=== PATIENT | female | born 1960 | race Two or more races ===

== ENCOUNTER → 2017-07-01 | Outpatient (CLI) | payer MEDICAID ==
[~2017-07-01] MED LIST: DICLOFENAC 50MG50 MG PO; FLEXERIL10 MG PO; HYDROCODONE-APA1 TA1 PO; PREDNISONE 20MG20 MG PO
--- NOTE | 2017-07-01 14:02 | RADIOLOGY REPORT PS360 ---
CT ABD PELVIS W/ CONTRAST CLINICAL INDICATION: RLQ ABD PAIN ORDERING PHYSICIAN: Rosaura MUSTAFA PATIENT AGE: 57 years COMPARISON: 10/02/2014 TECHNIQUE: Axial images obtained with sagittal and coronal reformats. PROCEDURE: Oral Contrast: Redicat IV Contrast: 75 mL of Isovue-[id number]. FINDINGS: Lower thorax: No acute finding ABDOMEN: Liver: No masses or biliary dilatation. Gallbladder: Nondistended. There are a few small densities along the posterior aspect of the gallbladder suspicious for small stones which may be confirmed with ultrasound. No biliary dilatation.. Pancreas: No masses or peripancreatic fluid collections. Spleen: Unremarkable. Adrenals: Unremarkable Kidneys/ureters: No masses. No renal calculi. No hydronephrosis. No perinephric fluid collections. No ureteral dilatation or obvious ureteral calculi. Stomach bowel: Nondistended. No obvious mass or thickening. Appendix: No evidence of appendicitis. PELVIS: Reproductive: Prior hysterectomy Bladder: Nondistended. No obvious stones or masses. ABDOMEN & PELVIS: Peritoneum: No abnormal fluid collections. No obvious inflammatory changes. No free air. Tiny umbilical hernia containing fat Lymph nodes: No enlarged lymph nodes apparent. Vasculature: No evidence of abdominal aortic aneurysm. No retroperitoneal hemorrhage evident. Bones: No acute fracture IMPRESSION: 1. Possible cholelithiasis. 2. No evidence of appendicitis or obstructing ureteral calculus.
== END ==
LOC: RAD 07:02
DX: R10.31 Right lower quadrant pain (principal)
CPT/HCPCS: Q9967

== ENCOUNTER → 2017-07-23 | Outpatient (CLI) | payer MEDICAID ==
--- NOTE | 2017-07-23 09:49 | RADIOLOGY REPORT PS360 ---
US RUQ-(ABD LTD)1ORGAN/QUAD/FU HISTORY: Abdominal pain, abnormal CT scan suggesting possible cholelithiasis GALLBLADDER CALCULUS WITH NONACUTE CHOLECYSTITIS ORDERING PHYSICIAN: Rosaura MUSTAFA PATIENT AGE: 57 years COMPARISON: None FINDINGS: PANCREAS:Unremarkable. No obvious mass or abnormal fluid collection. No ductal dilatation LIVER:No focal liver lesions demonstrated. Homogeneous echogenicity. No intrahepatic biliary ductal dilatation evident RIGHT KIDNEY:Unremarkable. Normal size and echogenicity. No hydronephrosis GALLBLADDER:No gallstones, gallbladder wall thickening, pericholecystic fluid, or biliary dilatation. IMPRESSION: Unremarkable right upper quadrant ultrasound. No stones are identified. The abnormalities noted on the CT scan could have been due to sludge which has dissipated in the interval
== END ==
LOC: RAD 08:00
DX: K80.10 Calculus of gallbladder with chronic cholecystitis without obstruction (principal)